=== PATIENT | female | born 1955 | race Asian ===

== ENCOUNTER → 2022-12-06 | Outpatient (CLI) | payer MEDICARE, OTHER ==
[~2022-12-06] VITALS: Ht 152.4 cm; Wt 47.5 kg
[~2022-12-06] MED LIST: ASPI-556 PO; ATEN-73 PO; ATOR10TA PO; CALC-1124 PO; CETI-450 PO; EMPA25TA3 PO; EZET1TAB2 PO; METF-1185 PO; MULT-1192 PO; TELM1TAB4 PO; TELM40 PO
[2022-12-06 14:54] VITALS: BP 131/64; PULSE 68; RESP 18; TEMP 98.1; O2SAT 98
== END | disposition home or self-care (01) ==
LOC: SRCNTR 14:31
PROVIDERS: ATTEND Internal Medicine
DX: R01.1 Cardiac murmur, unspecified (principal); I10 Essential (primary) hypertension; E11.9 Type 2 diabetes mellitus without complications; E78.5 Hyperlipidemia, unspecified
CPT/HCPCS: G0463

== ENCOUNTER → 2023-01-31 | Outpatient (CLI) | payer MEDICARE, OTHER ==
[~2023-01-31] MED LIST changes: -ASPI-556 PO; -EZET1TAB2 PO; -METF-1185 PO; -TELM1TAB4 PO
== END | disposition home or self-care (01) ==
LOC: SRCNTR 02:00
PROVIDERS: ATTEND Internal Medicine
DX: I10 Essential (primary) hypertension (principal); E11.9 Type 2 diabetes mellitus without complications; E78.5 Hyperlipidemia, unspecified; R42 Dizziness and giddiness
CPT/HCPCS: Q3014

== ENCOUNTER → 2023-03-17 | Outpatient (CLI) | payer MEDICARE, OTHER ==
[~2023-03-17] MED LIST changes: +REGADENOSON 0.4 MG/5 ML PF SYRINGE IVP ONE; +SESTAMIBI TC99M/UD ISOTOPE 1 EA INJ INJ ONE
== END | disposition home or self-care (01) ==
LOC: CARDMN 08:35
PROVIDERS: ATTEND Internal Medicine
DX: R07.9 Chest pain, unspecified (principal)
CPT/HCPCS: 78452; A9500; J2785

== ENCOUNTER → 2023-04-04 | Outpatient (CLI) | payer MEDICARE, OTHER ==
[~2023-04-04] MED LIST changes: -REGADENOSON 0.4 MG/5 ML PF SYRINGE IVP ONE; -SESTAMIBI TC99M/UD ISOTOPE 1 EA INJ INJ ONE
== END | disposition home or self-care (01) ==
LOC: SRCNTR 12:04
PROVIDERS: ATTEND Internal Medicine
DX: R53.83 Other fatigue (principal); I10 Essential (primary) hypertension; E11.9 Type 2 diabetes mellitus without complications; E78.5 Hyperlipidemia, unspecified
CPT/HCPCS: Q3014

== ENCOUNTER 2024-09-12 00:08 | Inpatient (IN) | payer MEDICARE, OTHER ==
[~2024-09-12] VITALS: Ht 154.9 cm; Wt 43.1 kg
[2024-09-12] MEDS ORDERED: CALC-1085 PO (00:27)
[2024-09-12] MEDS ORDERED: ASPI-1450 PO (00:27)
[2024-09-12 00:40] LABS: GLUCOMETER DEV NAME(LOC) ER.7; GLUCOSE,POINT OF CARE 186 MG/DL (70-110)
[2024-09-12 00:53] LABS: BASOPHILS % (AUTO) 0.4 % (0.0-2.0); EOSINOPHILS % (AUTO) 1.4 % (1.0-6.0); HEMATOCRIT 35.3 % (36-46); HEMOGLOBIN 12.1 g/dL (12.0-16.0); LYMPHOCYTES # (AUTO) 0.9 K/uL (1.0-4.8); LYMPHOCYTES % (AUTO) 9.4 % (22.0-44.0); MEAN CORPUSCULAR HGB CONC 34.2 G/dL (31.0-37.0); MEAN CORPUSCULAR VOLUME 88 fL (80-100); MONOCYTES # (AUTO) 0.6 K/uL (0.1-1.0); MONOCYTES % (AUTO) 6.3 % (2.0-9.0); NEUTROPHILS # (AUTO) 8.1 K/uL (1.8-7.7); NEUTROPHILS % (AUTO) 82.5 % (40.0-70.0); PLATELET COUNT (AUTO) 529 K/uL (150-450); RED BLOOD CELL COUNT(AUTO) 4.02 MIL/uL (4.00-5.20); RED CELL DISTRIBUTION WIDTH 12.5 % (11.5-14.5); WHITE BLOOD COUNT (AUTO) 9.8 K/uL (4.5-11.0)
[2024-09-12 01:09] LABS: ANION GAP 5 mmol/L (8-16); CALCIUM, TOTAL 9.3 mg/dL (8.8-10.5); CARBON DIOXIDE 30 mmol/L (22-29); CHLORIDE 102 mmol/L (98-107); GLOMERULAR FILTR. RATE CALC 55 mL/min (>60); GLUCOSE,RANDOM 198 mg/dL (70-110); POTASSIUM 3.6 mmol/L (3.5-5.1); SODIUM SERUM 137 mmol/L (136-145); UREA NITROGEN, BLOOD 23 mg/dL (7-18)
[2024-09-12 01:14] LABS: TROPONIN I-HIGH SENSITIVITY 61 ng/L (<51)
[2024-09-12 01:15] LABS: ALBUMIN 3.7 g/dL (3.4-5.0); BILIRUBIN,DIRECT 0.2 mg/dL (0.00-0.20); BILIRUBIN,TOTAL 0.6 mg/dL (0.1-1.0); MAGNESIUM 2.1 mg/dL (1.80-2.40); TOTAL PROTEIN, SERUM 7.1 g/dL (6.4-8.2)
[2024-09-12 02:48] LABS: APPEARANCE,URINE CLEAR (CLEAR); BILIRUBIN,URINE NEGATIVE (NEGATIVE); COLOR,URINE LIGHT YELLOW (YELLOW); GLUCOSE, URINE (UA) 70-100 mg/dL (NEGATIVE); KETONES,URINE NEGATIVE (NEGATIVE); LEUKOCYTE ESTERASE ,URINE MODERATE (NEGATIVE); NITRATE,URINE NEGATIVE (NEGATIVE); OCCULT BLOOD,URINE NEGATIVE (NEGATIVE); PH,URINE 6.5 (5.0-8.0); PROTEIN,URINE NEGATIVE (NEGATIVE); SPECIFIC GRAVITIY, URINE 1.015 (1.003-1.030); UROBILINOGEN,URINE <=1.0 mg/dL (<=1.0)
[2024-09-12 03:31] LABS: BACTERIA,URINE Rare /HPF (None Seen); RBC,URINE None Seen /HPF (0-2); SQUAMOUS EPITHELIAL CELL,UR Rare /LPF (None Seen)
[2024-09-12 03:40] LABS: TROPONIN I-HIGH SENSITIVITY 61 ng/L (<51)
[2024-09-12] MEDS: CefTRIAXone 1 GM/DEXTROSE 50 ML IV ONE (04:34)
[2024-09-12] MEDS ORDERED: DEXTROSE 50%-WATER 25 GM/50 ML SYRINGE IVP PRN (10:15)
[2024-09-12] MEDS ORDERED: ACETAMINOPHEN 325 MG TABLET PO PRN (10:15)
[2024-09-12] MEDS ORDERED: INSULIN LISPRO 100 UNITS/ML SQ PRN (10:15)
[2024-09-12] MEDS ORDERED: ONDANSETRON HCL 4 MG/2 ML VIAL IVP PRN (10:15)
[2024-09-12] MEDS: SODIUM CHLORIDE 0.9% 1,000 ML IV ONE (10:37)
[2024-09-12 15:16] LABS: GLUCOMETER DEV NAME(LOC) ERT.7; GLUCOSE,POINT OF CARE 129 MG/DL (70-110)
[2024-09-12] MEDS: HEPARIN SODIUM,PORCINE 5,000 UNITS/ML VIAL SQ SCH (15:54)
[2024-09-12 20:30] VITALS: BP 125/59; PULSE 60; RESP 19; TEMP 97.7; O2SAT 97
[2024-09-12] MEDS: DOCUSATE SODIUM 100 MG CAPSULE PO SCH (21:00)
[2024-09-12 22:36] LABS: GLUCOMETER DEV NAME(LOC) 5S.1D; GLUCOSE,POINT OF CARE 127 MG/DL (70-110)
[2024-09-13 00:45] VITALS: BP 114/56; PULSE 70; RESP 18; TEMP 97.3; O2SAT 96
[2024-09-13] MEDS ORDERED: SODIUM CHLORIDE 0.9% 250 ML IV ONE (02:55)
[2024-09-13] MEDS: CefTRIAXone 1 GM/DEXTROSE 50 ML IV SCH (03:04)
[2024-09-13 04:09] VITALS: BP 132/59; PULSE 61; RESP 19; TEMP 97.5; O2SAT 98
[2024-09-13 06:25] LABS: GLUCOMETER DEV NAME(LOC) 5S.1D; GLUCOSE,POINT OF CARE 116 MG/DL (70-110)
[2024-09-13] MEDS: ASPIRIN 81 MG CHEWABLE TABLET PO SCH (08:33)
[2024-09-13] MEDS: FAMOTIDINE 20 MG TABLET PO SCH (08:33)
[2024-09-13 09:26] VITALS: BP 146/74; PULSE 60; RESP 18; TEMP 98.1; O2SAT 99
[2024-09-13 14:01] LABS: GLUCOMETER DEV NAME(LOC) 5S.2D; GLUCOSE,POINT OF CARE 148 MG/DL (70-110)
== END 2024-09-13 17:40 | disposition home or self-care (01) | DRG 641 ==
LOC: EMS 01:09 → EDH 07:35 → 5S 20:07
PROVIDERS: ADMIT Internal Medicine; ATTEND Internal Medicine
DX: E86.0 Dehydration (principal); N39.0 Urinary tract infection, site not specified; R55 Syncope and collapse; E11.9 Type 2 diabetes mellitus without complications; E78.00 Pure hypercholesterolemia, unspecified; I10 Essential (primary) hypertension; Z90.710 Acquired absence of both cervix and uterus; Z83.3 Family history of diabetes mellitus; Z79.899 Other long term (current) drug therapy; Z79.82 Long term (current) use of aspirin
CPT/HCPCS: 70450; 71045; 80048; 80076; 81001; 82550; 82962; 83735; 83880; 84100; 84484; 85025; 87086; 93005; 96361; 96365; 97163; 97165; 97535; 99285; J0696; J1644; J7050; 36415-L1; 36415-TC

== ENCOUNTER → 2024-10-23 | Outpatient (CLI) | payer MEDICARE, OTHER ==
[~2024-10-23] VITALS: Ht 154.9 cm; Wt 42.2 kg
[~2024-10-23] MED LIST changes: +ASPI-1450 PO; -ATEN-73 PO; +CALC-1085 PO; -CALC-1124 PO; -CETI-450 PO; -EMPA25TA3 PO
[2024-10-23 14:21] VITALS: BP 141/61; PULSE 85; RESP 20; TEMP 98.1; O2SAT 97
== END | disposition home or self-care (01) ==
LOC: SRCNTR 13:39
PROVIDERS: ATTEND Internal Medicine
DX: I10 Essential (primary) hypertension (principal); Z09 Encounter for follow-up examination after completed treatment for conditions other than malignant neoplasm; E78.5 Hyperlipidemia, unspecified; E11.9 Type 2 diabetes mellitus without complications; R53.83 Other fatigue; Z79.899 Other long term (current) drug therapy
CPT/HCPCS: G0463; Z7500